=== PATIENT | male | born 1940 | race Caucasian/White ===

== ENCOUNTER 2025-01-16 10:58 | Day surgery (SDC) | payer MEDICARE, BC ==
[2025-01-16] MEDS ORDERED: PHENYLEPHRINE-NS 100 MCG/ML 10 ML SYRINGE ONE (12:17)
[2025-01-16 14:59] VITALS: BP 110/67; TEMP 97.9
== END 2025-01-16 12:56 | disposition home or self-care (01) ==
LOC: CSHSDC 10:58
PROVIDERS: ATTEND Internal Medicine Cardiovascular Disease
PROC: 5A2204Z Restoration of Cardiac Rhythm, Single (ICD-10-PCS; principal; 2025-01-16)
DX: I48.19 Other persistent atrial fibrillation (principal); I25.10 Atherosclerotic heart disease of native coronary artery without angina pectoris; I73.9 Peripheral vascular disease, unspecified; I49.5 Sick sinus syndrome; I42.9 Cardiomyopathy, unspecified; K21.9 Gastro-esophageal reflux disease without esophagitis; Z85.01 Personal history of malignant neoplasm of esophagus; Z95.5 Presence of coronary angioplasty implant and graft; Z95.0 Presence of cardiac pacemaker; Z87.891 Personal history of nicotine dependence; Z98.890 Other specified postprocedural states; Z88.8 Allergy status to other drugs, medicaments and biological substances; Z79.01 Long term (current) use of anticoagulants; Z79.899 Other long term (current) drug therapy
CPT/HCPCS: 92960

== ENCOUNTER 2025-03-12 16:08 | Emergency (ER) | payer MEDICARE, BC ==
[2025-03-12 17:21] LABS: #Basophils 0.04 10x3/uL (0.0-0.2); #Eosinophils 0.27 10x3/uL (0.0-0.5); #Monocytes 0.78 10x3/uL (0.0-1.1); #Neutrophils 5.52 10x3/uL (1.5-8.4); %Basophils 0.5 % (0.0-2.0); %Eosinophils 3.4 % (0.0-6.0); %Lymphocytes 16.1 % (18.0-47.0); %Monocytes 9.9 % (0.0-10.0); %Neutrophils 69.8 % (40.0-75.0); Hematocrit 34.8 % (38.8-50.0); Hemoglobin 11.3 g/dL (13.5-17.5); Mean Corpuscular Hemoglobin 30.0 pg (27.0-33.0); Mean Corpuscular Volume 92.3 fL (81.2-95.1); Platelet Count 226 10x3/uL (150-450); Red Blood Cell (RBC) Count 3.77 10x6/uL (4.32-5.72); White Blood Cell (WBC) Count 7.90 10x3/uL (3.5-10.5)
[2025-03-12 17:35] LABS: ALT (SGPT) 13 U/L (Less than 45); AST (SGOT) 23 U/L (11-34); Albumin 3.2 g/dL (3.1-4.5); Alkaline Phosphatase 69 U/L (40-110); Anion Gap 11 mmol/L (10-20); BUN (Urea Nitrogen) 32 mg/dL (8.4-25.7); Bilirubin, Total 0.2 mg/dL (0.3-1.2); Calc. Creatinine Clearance 0 mL/min (70-130); Calcium 8.7 mg/dL (7.8-10.44); Carbon Dioxide 27 mmol/L (23-31); Chloride 102 mmol/L (98-107); Globulin 3.2 g/dL (2.4-3.5); Glucose 95 mg/dL (83-110); Potassium 4.7 mmol/L (3.5-5.1); Sodium 135 mmol/L (136-145)
[2025-03-12 17:38] LABS: Troponin I 0.071 ng/mL (< 0.028)
== END 2025-03-12 18:41 | disposition home or self-care (01) ==
LOC: CSHERS 16:08
DX: R55 Syncope and collapse (principal); N17.9 Acute kidney failure, unspecified; E86.9 Volume depletion, unspecified; R79.89 Other specified abnormal findings of blood chemistry; D64.9 Anemia, unspecified; I25.10 Atherosclerotic heart disease of native coronary artery without angina pectoris; I25.2 Old myocardial infarction; I10 Essential (primary) hypertension; Z95.0 Presence of cardiac pacemaker; Z87.891 Personal history of nicotine dependence
CPT/HCPCS: 36415; 70450; 72125; 80053; 83880; 84484; 85025; 93005